=== PATIENT | female | born 2000 | race African-American/Black ===

== ENCOUNTER 2022-03-22 10:31 | Emergency (ER) | payer OTHER ==
[~2022-03-22] VITALS: Ht 160 cm; Wt 52.2 kg
[2022-03-22] MEDS ORDERED: TDAP [DIPH/PERTUSSIS/TET] 0.5 ML VIAL IM ONE ×2 (11:28→11:30)
--- NOTE | 2022-03-22 11:43 | NUR ---
WOUND CARE DONE ON RIGHT EYEBROW LAC; TDAP ADMINISTERED ON LEFT DELTOID.
[2022-03-22 11:53] VITALS: BP 125/81
--- NOTE | 2022-03-22 11:53 | NUR ---
Patient discharged to home in stable condition. Written and verbal after care instructions given. Patient verbalizes understanding of instruction.
== END 2022-03-22 11:54 | disposition home or self-care (01) ==
LOC: ER 10:39
DX: S00.81XA Abrasion of other part of head, initial encounter (principal); V49.59XA Passenger injured in collision with other motor vehicles in traffic accident, initial encounter; Y93.89 Activity, other specified; Y92.413 State road as the place of occurrence of the external cause; Y99.8 Other external cause status
CPT/HCPCS: 90715